=== PATIENT | male | born 1950 | race Asian ===

== ENCOUNTER → 2017-01-24 | Outpatient (CLI) | payer OTHER | END | disposition home or self-care (01) | LOC: RADPV 09:22 | PROVIDERS: ATTEND Internal Medicine | DX: I70.0 Atherosclerosis of aorta (principal); R91.8 Other nonspecific abnormal finding of lung field; Z72.0 Tobacco use | CPT/HCPCS: 71020 ==

== ENCOUNTER 2024-06-14 19:56 | Emergency (ER) | payer MEDICARE, OTHER ==
[~2024-06-14] VITALS: Ht 165.1 cm; Wt 52.7 kg
[2024-06-14 20:00] VITALS: TEMP 97.6
[2024-06-14] MEDS ORDERED: TAMS0.4C94 PO (20:08)
[2024-06-14 20:21] LABS: APPEARANCE,URINE HAZY (CLEAR); BILIRUBIN,URINE NEGATIVE (NEGATIVE); COLOR,URINE LIGHT YELLOW (YELLOW); GLUCOSE, URINE (UA) NEGATIVE (NEGATIVE); KETONES,URINE NEGATIVE (NEGATIVE); LEUKOCYTE ESTERASE ,URINE LARGE (NEGATIVE); NITRATE,URINE POSITIVE (NEGATIVE); OCCULT BLOOD,URINE MODERATE (NEGATIVE); PROTEIN,URINE 30-70 mg/dL (NEGATIVE); SPECIFIC GRAVITIY, URINE 1.009 (1.003-1.030); UROBILINOGEN,URINE <=1.0 mg/dL (<=1.0)
[2024-06-14 20:38] LABS: WBC,URINE 26-50 /HPF (0-5)
[2024-06-14 20:39] LABS: BACTERIA,URINE Moderate /HPF (None Seen)
[2024-06-14 22:00] VITALS: BP 134/60; PULSE 66; RESP 15; O2SAT 97
[2024-06-14] MEDS ORDERED: CEFP200T12 PO (22:45)
[2024-06-14] MEDS: CEFPODOXIME PROXETIL 200 MG TABLET PO ONE (23:21)
== END 2024-06-14 23:45 | disposition home or self-care (01) ==
LOC: EMS 19:56
DX: N39.0 Urinary tract infection, site not specified (principal); F17.210 Nicotine dependence, cigarettes, uncomplicated
CPT/HCPCS: 51702; 81001; 87086; 87186; 99284; Z7502

== ENCOUNTER 2025-01-27 09:35 | Emergency (ER) | payer MEDICARE ==
[~2025-01-27] VITALS: Ht 167.6 cm; Wt 63.6 kg
[~2025-01-27 09:35] MED LIST: CEFP200T12 PO; TAMS0.4C94 PO
[2025-01-27] MEDS ORDERED: ASPI-1522 PO (09:41)
[2025-01-27] MEDS ORDERED: AMLO5TAB66 PO (09:41)
[2025-01-27 09:42] VITALS: TEMP 97.7
[2025-01-27 10:51] LABS: BASOPHILS % (AUTO) 0.4 % (0.0-2.0); EOSINOPHILS % (AUTO) 1.2 % (1.0-6.0); HEMATOCRIT 44.7 % (41-53); MEAN CORPUSCULAR HEMOGLOBIN 31.8 pg (26.0-34.0); MEAN CORPUSCULAR HGB CONC 33.5 G/dL (31.0-37.0); MEAN CORPUSCULAR VOLUME 95 fL (80-100); MONOCYTES # (AUTO) 0.6 K/uL (0.1-1.0); MONOCYTES % (AUTO) 8.8 % (2.0-9.0); NEUTROPHILS # (AUTO) 4.8 K/uL (1.8-7.7); NEUTROPHILS % (AUTO) 73.6 % (40.0-70.0); PLATELET COUNT (AUTO) 244 K/uL (150-450); RED BLOOD CELL COUNT(AUTO) 4.71 MIL/uL (4.50-5.90); RED CELL DISTRIBUTION WIDTH 13.5 % (11.5-14.5); WHITE BLOOD COUNT (AUTO) 6.5 K/uL (4.5-11.0)
[2025-01-27 10:59] LABS: ANION GAP 8 mmol/L (8-16); CALCIUM, TOTAL 8.9 mg/dL (8.8-10.5); CARBON DIOXIDE 26 mmol/L (22-29); CHLORIDE 104 mmol/L (98-107); CREATININE 1.73 mg/dL (0.60-1.30); GLOMERULAR FILTR. RATE CALC 39 mL/min (>60); GLUCOSE,RANDOM 96 mg/dL (70-110); POTASSIUM 3.4 mmol/L (3.5-5.1); SODIUM SERUM 138 mmol/L (136-145); UREA NITROGEN, BLOOD 49 mg/dL (7-18)
[2025-01-27 11:08] LABS: TROPONIN I-HIGH SENSITIVITY 17 ng/L (<76)
[2025-01-27] MEDS: MECLIZINE HCL 25 MG TABLET PO ONE (11:34)
[2025-01-27 13:00] VITALS: BP 106/71; PULSE 75; RESP 12; O2SAT 97
[2025-01-27] MEDS ORDERED: MECL-302 PO (13:24)
== END 2025-01-27 14:49 | disposition home or self-care (01) ==
LOC: EMS 09:35
DX: R42 Dizziness and giddiness (principal); R11.0 Nausea; F17.210 Nicotine dependence, cigarettes, uncomplicated; Z79.82 Long term (current) use of aspirin
CPT/HCPCS: 80048; 84484; 85025; 93005; 99284